=== PATIENT | female | born 1970 | race Caucasian/White ===

== ENCOUNTER 2017-03-23 09:22 | Emergency (ER) | payer OTHER ==
[~2017-03-23 09:22] MED LIST: ALLEGRA ALLERGY60 M1 PO; AUGMENTIN 875-1 EAC2 PO; BENADRYL25 M3 PO; CAL MAG ZINC PO; CALCIUM + VITA1 EAC4 PO; CALCIUM-MAGNES1 EA10 PO; CLONAZEPAM2 M1 PO; DECARA25000 UNIT PO; DELTASONE20 MG PO; DEPAKOTE250 MG PO; DIFLUCAN100 M1 PO; DOXEPIN; DOXEPIN HCL50 M1 PO; EAC PO; EPIPEN 2-P0.3 MG/0.3 IJ; GOODY'S EX-STR1 EAC1 PO; HYDROCODON-ACE1 EA17 PO; HYDROXYZINE HCL25 M1 PO; HYDROXYZINE HCL50 M1 PO; IPRAT-ALBUT 0.5-3 ML INH; KLONOPIN0.5 M1 PO; KLONOPIN1 MG PO; KLONOPIN2 MG PO; LAMICTAL200 M2 PO; MECLIZINE HCL25 M3 PO; METHYLPREDNISOLO PO; MIGRAINE RELIEF1 TAB PO; OMEPRAZOLE40 M2 PO; PHENOBARBITAL32.4 MG PO; PHENOBARBITAL64.8 M1 PO; PHENOBARBITAL64.8 MG PO; PREDNISONE10 M1 PO; PREDNISONE10 M2 PO; PREDNISONE20 M1 PO; PROTONIX40 M2 PO; RANITIDINE; TAMIFLU75 MG/CAP NG; TAMIFLU75 MG/CAP PO; TYLENOL325 MG PO; VENTOLIN HFA18 G2 INH; XOLAIR150 MG/1.2 SC; ZITHROMAX250 M1 PO; ZOFRAN4 M2 PO; ZYRTEC1010 PO; [UNRECOGNIZED DRUG - OTHER] OP; [UNRECOGNIZED DRUG - OTHER] PO
[2017-03-23 10:14] LABS: HCT-HEMATOCRIT 41.7 % (34.0-49.0); HGB-HEMOGLOBIN 14.2 gm/dl (12.0-15.5); LYMPH % 21.9 % (20-45); LYMPH ABSOLUTE COUNT 1.2 tho/cmm (0.8-4.5); MCH (MEAN CORPUSCULAR HGB) 30.7 pg (28.0-32.0); MCHC MEAN CORPUSCULAR HGB CONC 34.1 % (32.0-36.0); MCV (MEAN CELL VOLUME) 90.1 fl (82.0-96.0); MEAN PLATELET VOLUME 10.2 cmc (9.4-12.4); MONO % 7.4 % (0-12); MONOCYTE ABSOLUTE COUNT 0.4 tho/cmm (0.0-1.2); NEUTROPHIL ABSOLUTE COUNT 3.8 tho/cmm (1.6-8.0); NEUTROPHIL-AUTOMATED 3.8 tho/cmm (1.6-8.0); NEUTROPHILS % 70.7 % (40-80); PLATELET COUNT 310 tho/cmm (150-450); RED BLOOD COUNT 4.63 mil/cmm (4.00-5.20); WHITE BLOOD COUNT 5.4 tho/cmm (4.0-10.0)
[2017-03-23 10:27] LABS: ANION GAP 14 mmol/L (0-20); BLOOD UREA NITROGEN 7 mg/dl (6-24); CALCIUM 9.1 mg/dl (8.5-10.5); CARBON DIOXIDE-VENOUS 28 mmol/L (22-32); CHLORIDE 106 mmol/l (96-110); CREATININE 0.81 mg/dl (0.50-1.10); GLUCOSE 135 mg/dL (70-110); POTASSIUM 3.8 mmol/L (3.7-5.1); SODIUM 144 mmol/L (135-145); eGFR VALUE FOR BLACK >90 mL/Min
== END 2017-03-23 11:42 ==
LOC: EDMED 09:22
PROVIDERS: Emergency Medicine
DX: G43.909 Migraine, unspecified, not intractable, without status migrainosus (principal); R20.0 Anesthesia of skin
CPT/HCPCS: J0780; J1200; J7030

== ENCOUNTER 2017-04-27 17:05 | Emergency (ER) | payer OTHER ==
[2017-04-27] MEDS ORDERED: RANITIDINE HCL75 M1 PO (19:43)
== END 2017-04-27 21:27 ==
LOC: EDMED 17:05
DX: G43.909 Migraine, unspecified, not intractable, without status migrainosus (principal); G40.909 Epilepsy, unspecified, not intractable, without status epilepticus; Z98.51 Tubal ligation status
CPT/HCPCS: J0780; J1200; J1885; J7030